=== PATIENT | male | born 1980 | race Caucasian/White ===

== ENCOUNTER 2023-04-17 10:45 | Outpatient (RCR) | payer BC, SELFPAY | END 2023-04-17 13:13 | disposition home or self-care (01) | PROVIDERS: PCP Family Medicine; Visit Provider Family Medicine | DX: M25.531 Pain in right wrist (principal); Z51.89 Encounter for other specified aftercare | CPT/HCPCS: 97033; 97035; 97140; 97165; 97530 ==

== ENCOUNTER 2024-05-11 14:30 | Outpatient (RCR) | payer BC, SELFPAY | END 2024-08-19 13:38 | disposition home or self-care (01) | PROVIDERS: PCP Family Medicine; Visit Provider Family Medicine | DX: M25.511 Pain in right shoulder (principal); G89.29 Other chronic pain; Z51.89 Encounter for other specified aftercare | CPT/HCPCS: 97110; 97112; 97140; 97161 ==